=== PATIENT | female | born 1950 | race Caucasian/White ===

== ENCOUNTER 2019-01-15 09:43 | Day surgery (SDC) | payer MEDICARE, OTHER ==
[~2019-01-15] VITALS: Ht 157.5 cm; Wt 77.9 kg
[2019-01-15 10:10] VITALS: Ht 157.5 cm; Wt 77.9 kg
[2019-01-15] MEDS ORDERED: LOSARTAN (10:15)
[2019-01-15] MEDS ORDERED: FOSAMAX (10:15)
[2019-01-15] MEDS ORDERED: HYDROXYZINE (10:15)
[2019-01-15] MEDS ORDERED: CITALOPRAM (10:15)
[2019-01-15] MEDS ORDERED: BUSPIRONE (10:15)
[2019-01-15] MEDS ORDERED: ASA 81 (10:15)
[2019-01-15] MEDS ORDERED: HCTZ (10:15)
[2019-01-15] MEDS ORDERED: LATUDA (10:15)
[2019-01-15] MEDS ORDERED: CLONAZEPAM (10:15)
[2019-01-15] MEDS ORDERED: OMEPRAZOLE (10:15)
--- NOTE | 2019-01-15 10:22 | PREAC ---
Date/Time of Note Date/Time of Note DATE: 01/15/19 TIME: 10:21 Anesthesia Eval and Record Evaluation Time Pre-Procedure Interview DATE: 01/15/19 TIME: 10:21 Age 68 Sex female NPO: 8 hrs Preoperative diagnosis GERD Planned procedure EGD Past Medical History Past Medical History: Includes Cardio: HTN, Dyslipidemia Psych: Depression, Anxiety Surgery & Anesthesia Issues No known issue Meds Anticoagulation: Yes Beta Jovanna within 24 hr: No Reason Beta Jovanna not given: Pt. not on B-Jovanna Reported Medications [Buspirone] No Conflict Check 01/15/19 [Citalopram] No Conflict Check 01/15/19 [Clonazepam] No Conflict Check 01/15/19 [Hydroxyzine] No Conflict Check 01/15/19 [Latuda] No Conflict Check 01/15/19 [Fosamax] No Conflict Check 01/15/19 [Omeprazole] No Conflict Check 01/15/19 [Hctz] No Conflict Check 01/15/19 [Losartan] No Conflict Check 01/15/19 [Asa 81] No Conflict Check 01/15/19 Meds reviewed: Yes Allergies Coded Allergies: No Known Allergy (Unverified , 01/15/19) Allergies Reviewed: Yes Labs/Studies Labs Reviewed: Reviewed by anesthesiologist test: N/A Pre-procedure Exam Airway: Adequate mouth opening, Adequate thyromental dist Mallampati: Mallampati II Teeth: Normal Lung: Normal Heart: Normal ASA Physical Status ASA physical status: 2 Emergency: None Planned Anesthetic General/MAC: MAC, TIVA Planned Pain Management Parenteral pain med Pre-operative Attestations Prior to commencing anesthesia and surgery, the patient was re-evaluated, there was verification of: *The patient's identity *The results of appropriate recent lab work and preoperative vital signs *The above evaluation not changing prior to induction *Anesthetic plan, risk benefits, alternative and complications discussed with patient/family; questions answered; patient/family understands, accepts and wishes to proceed. ROHITH FLORES Jan 15, 2019 10:22
[2019-01-15 10:27] VITALS: BP 151/85; PULSE 77; RESP 16
[2019-01-15] MEDS ORDERED: PROPOFOL 40 ML ONE (10:27)
[2019-01-15 11:21] VITALS: BP 106/61; PULSE 70; RESP 14
[2019-01-15 11:55] VITALS: BP 166/77; RESP 14
--- NOTE | 2019-01-15 12:58 | PAC ---
Date/Time of Note Date/Time of Note DATE: 01/15/19 TIME: 12:58 Post-Anesthesia Notes Post-Anesthesia Note Last documented vital signs BP 133/62 HR 80 RR 16 Temp 97 SPO2 100% Activity: WNL Respiratory function: WNL Cardiovascular function: WNL Mental status: Baseline Pain reasonably controlled: Yes Hydration appropriate: Yes Nausea/Vomiting absent: Yes ROHITH FLORES Jan 15, 2019 12:58
== END 2019-01-15 11:41 | disposition home or self-care (01) ==
LOC: GIL 09:43
PROVIDERS: ATTEND Internal Medicine Gastroenterology
DX: Z12.11 Encounter for screening for malignant neoplasm of colon (principal); K64.8 Other hemorrhoids; K21.9 Gastro-esophageal reflux disease without esophagitis; I10 Essential (primary) hypertension; E78.5 Hyperlipidemia, unspecified
CPT/HCPCS: 43239; 88305; G0121